=== PATIENT | male | born 1980 | race Hispanic/Latino ===

== ENCOUNTER 2017-09-12 21:02 | Emergency (ER) | payer MEDICAID ==
[2017-09-12 21:16] VITALS: RESP 20
[2017-09-12] MEDS ORDERED: Oxycodone/Acetaminophen 5/325 mg Tab PO STA (21:26)
--- NOTE | 2017-09-12 21:46 | ED PDOC ---
HPI: Dental Pain/Injury Time Seen by Provider: 09/12/17 21:18 Chief Complaint (Nursing): Dental Pain Chief Complaint (Provider): Dental Pain History Per: Patient History/Exam Limitations: no limitations Onset/Duration Of Symptoms: Days (x3) Current Symptoms Are (Timing): Still Present Additional Complaint(s): 37 year old male presents to ED with complaints of right upper toothache and has no past medical history. Notes that he cracked his tooth in September 2016 but never sought medical attention. (+) gum swelling. (-) chest pain, SOB, visual changes, or headache. Patient notes that she becomes very anxious in medical settings and became even more anxious after seeing his elevated blood pressure. Denies history of HTN. PCP: Non [facility] Past Medical History Reviewed: Historical Data, Nursing Documentation, Vital Signs Vital Signs: Last Vital Signs Temp 98.2 F 09/12/17 21:14 Pulse 115 H 09/12/17 21:14 Resp 20 09/12/17 21:14 BP 180/104 H 09/12/17 21:14 Pulse Ox 96 09/12/17 21:14 - Medical History PMH: No Chronic Diseases - Family History Family History: States: No Known Family Hx - Home Medications Home Medications: Ambulatory Orders Medication Instructions Recorded Amoxicillin [Amoxil 500 mg Cap] 500 mg PO Q8 #30 cap 09/12/17 Ibuprofen [Motrin Tab] 800 mg PO Q6 PRN #30 tab 09/12/17 - Allergies Allergies/Adverse Reactions: Allergies Allergy/AdvReac Type Severity Reaction Status Date / Time No Known Allergies Allergy Verified 09/12/17 21:13 Review of Systems ROS Statement: Except As Marked, All Systems Reviewed And Found Negative ENT: Positive for: Other ((+) toothache, swollen gums) Physical Exam - Reviewed Nursing Documentation Reviewed: Yes Vital Signs Reviewed: Yes - Physical Exam Appears: Positive for: Non-toxic, No Acute Distress Skin: Positive for: Normal Color, Warm, Dry Eye Exam: Positive for: Normal appearance, EOMI, PERRL ENT: Negative for: Normal ENT Inspection (right upper premolar area has minimal gingival swelling. No tooth present.) Respiratory: Negative for: Respiratory Distress Neurologic/Psych: Positive for: Alert, Oriented. Negative for: Motor/Sensory Deficits - ECG O2 Sat by Pulse Oximetry: 96 (RA) Pulse Ox Interpretation: Normal - Progress ED Course And Treament: Repeat BP: 148/98, HR: 102 Medical Decision Making Medical Decision Makin Initial impression: toothache Initial plan: * Percocet 2 tab PO * Re-eval Scribe Attestation: Documented by Berna Hines, acting as a scribe for Reji Grant PA-C. Provider Scribe Attestation: All medical record entries made by the Scribe were at my direction and personally dictated by me. I have reviewed the chart and agree that the record accurately reflects my personal performance of the history, physical exam, medical decision making, and the department course for this patient. I have also personally directed, reviewed, and agree with the discharge instructions and disposition. Disposition - Clinical Impression Clinical Impression: Toothache - Patient ED Disposition Is Patient to be Admitted: No - Disposition Referrals: [facility] [Outside] Disposition: Routine/Home Disposition Time: 22:39 Condition: IMPROVED Additional Instructions: Follow up with dentist for further evaluation. Prescriptions: Amoxicillin [Amoxil 500 mg Cap] 500 mg PO Q8 #30 cap Ibuprofen [Motrin Tab] 800 mg PO Q6 PRN #30 tab PRN Reason: Pain Instructions: Toothache (ED) Forms: [employer] ([employer])
[2017-09-12] MEDS ORDERED: Oxycodone/Acetaminophen 5/325 mg Tab ONE (21:52)
[2017-09-12 23:09] VITALS: BP 140/98; PULSE 110; TEMP 98; O2SAT 99
== END 2017-09-12 23:10 | disposition home or self-care (01) ==
LOC: H.ER 21:02
DX: K08.89 Other specified disorders of teeth and supporting structures (principal)